=== PATIENT | female | born 1970 | race Caucasian/White ===

== ENCOUNTER 2019-07-16 17:48 | Emergency (ER) | payer SELFPAY ==
[~2019-07-16] VITALS: Ht 165.1 cm; Wt 64.9 kg
[2019-07-16 18:21] VITALS: BP 128/68; Ht 165.1 cm; Wt 64.9 kg
== END 2019-07-16 19:00 | disposition left against medical advice (07) ==
LOC: ED 17:48
DX: Z53.21 Procedure and treatment not carried out due to patient leaving prior to being seen by health care provider (principal)